=== PATIENT | male | born 1990 | race Caucasian/White ===

== ENCOUNTER 2017-01-02 20:05 | Emergency (ER) | payer BC, OTHER ==
--- NOTE | 2017-01-02 20:37 | ED ---
General Adult HPI - General Chief complaint: Abdominal Pain Stated complaint: Abd Pain Time Seen by Provider: 01/02/17 20:33 Source: patient, RN notes reviewed, old records reviewed Mode of arrival: ambulatory Limitations: no limitations - History of Present Illness Initial comments: This is a 26-year-old male ER for evaluation. Patient is unsafe reevaluation of abdominal pain. Generalized diffuse bowel pain in the suprapubic no nausea no vomiting no diarrhea. No blood in his stool. No fevers no travel history no sick contacts. No family members with similar symptoms. No prior history of abdominal pain - Related Data Home Medications Medication Instructions Recorded Confirmed No Known Home Medications [No 01/02/17 01/02/17 Known Home Medications] Allergies Allergy/AdvReac Type Severity Reaction Status Date / Time No Known Allergies Allergy Verified 01/02/17 20:16 Review of Systems ROS Statement: Those systems with pertinent positive or pertinent negative responses have been documented in the HPI. ROS Other: All systems not noted in ROS Statement are negative. 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 History of Any Multi-Drug Resistant Organisms: None Reported Past Surgical History: No Surgical Hx Reported Past Psychological History: No Psychological Hx Reported Smoking Status: Current every day smoker Past Alcohol Use History: Occasional Past Drug Use History: None Reported General Exam Limitations: no limitations General appearance: alert, in no apparent distress Head exam: Present: atraumatic, normocephalic, normal inspection Eye exam: Present: normal appearance, PERRL, EOMI. Absent: scleral icterus, conjunctival injection, periorbital swelling ENT exam: Present: normal exam, mucous membranes moist Neck exam: Present: normal inspection. Absent: tenderness, meningismus, lymphadenopathy Respiratory exam: Present: normal lung sounds bilaterally. Absent: respiratory distress, wheezes, rales, rhonchi, stridor Cardiovascular Exam: Present: regular rate, normal rhythm, normal heart sounds. Absent: systolic murmur, diastolic murmur, rubs, gallop, clicks GI/Abdominal exam: Present: soft, normal bowel sounds. Absent: distended, tenderness, guarding, rebound, rigid Extremities exam: Present: normal inspection, full ROM, normal capillary refill. Absent: tenderness, pedal edema, joint swelling, calf tenderness Back exam: Present: normal inspection Neurological exam: Present: alert, oriented X3, CN II-XII intact Psychiatric exam: Present: normal affect, normal mood Skin exam: Present: warm, dry, intact, normal color. Absent: rash Course Vital Signs 01/02/17 20:13 Temperature 98.1 F Pulse Rate 61 Respiratory 16 Rate Blood Pressure 121/69 O2 Sat by Pulse 99 Oximetry - Reevaluation(s) Reevaluation #1: 01/02/17 20:42 Patient's pain is improved he had no tenderness on exam on initial evaluation, again no tenderness on exam Medical Decision Making - Medical Decision Making 23 mL ER for abdominal pain, x-ray negative, urine negative, patient given pain control discharged home - Radiology Data Radiology results: report reviewed (X-ray abdominal series of chest is negative for acute disease), image reviewed Disposition Clinical Impression: Abdominal pain Disposition: HOME SELF-CARE Condition: Good Instructions: Abdominal Pain (ED) Referrals: Felipe Mena MD [Primary Care Provider] - 1-2 days
[2017-01-02] MEDS ORDERED: DICYCLOMINE 20 MG TAB PO STA (20:39)
[2017-01-02] MEDS ORDERED: HYDROcodone/APAP 5-325MG 1 EACH TAB PO STA (20:39)
[2017-01-02] MEDS: ONDANSETRON ODT 4 MG TAB PO STA ×2 (20:50→21:39)
--- NOTE | 2017-01-02 21:10 | XR ---
EXAMINATION TYPE: XR abdomen acute w cxr DATE OF EXAM: 01/02/2017 CLINICAL HISTORY: Pain diarrhea TECHNIQUE: Single frontal view of chest is obtained. Supine and upright views of the abdomen are acq uired. COMPARISON: None. FINDINGS: The lungs are grossly clear without pleural effusion or pneumothorax. Cardiac silhouette size appears within normal limits. Osseous structures are intact. Normal colonic bowel gas is presen t. No pneumoperitoneum, visceromegaly, or suspicious calcification is identified. The osseous struct ures are intact. IMPRESSION: 1. No acute pulmonary process. 2. Mild fecal debris throughout the colon. No obstruction is evident.
[2017-01-02 21:11] LABS: Appearance,Urine Clear (Clear); Bilirubin,Urine Negative (Negative); Glucose,Urine (UA) Negative (Negative); Ketones,Urine Negative (Negative); Leukocyte Esterase,Urine Negative (Negative); Mucus,Urine Rare /hpf; Nitrite,Urine Negative (Negative); PH, Urine 5.5 (5.0-8.0); Particle Count 902; Protein,Urine Negative (Negative); RBC,Urine 2 /hpf (0-5); Specific Gravity,Urine 1.015 (1.001-1.035); UA Billing (MACRO vs. MICRO) MICRO; Urobilinogen,Urine <2.0 mg/dL (<2.0); WBC,Urine <1 /hpf (0-5)
[2017-01-02 21:42] VITALS: BP 116/55; PULSE 67; RESP 18; TEMP 97.8
== END 2017-01-02 21:42 | disposition home or self-care (01) ==
LOC: EC 20:05
DX: R10.84 Generalized abdominal pain (principal); F17.200 Nicotine dependence, unspecified, uncomplicated
CPT/HCPCS: 74022; 81001; 87086; 99284